=== PATIENT | male | born 1995 | race Caucasian/White ===

== ENCOUNTER 2024-11-14 23:23 | Emergency (ER) | payer OTHER, SELFPAY ==
[2024-11-14 23:26] VITALS: BP 120/80
--- NOTE | 2024-11-14 23:53 | ED.GENMED ---
History of Present Illness
General
Chief Complaint: Fall
Source: patient and family (Girlfriend at bedside)
Exam Limitations: none
Time Seen by Provider: 11/14/24 23:40
Nursing documentation reviewed up to this point in time: agreed with
History of Present Illness
History of Present Illness:
This is a 29-year-old gentleman who has remote history of substance use disorder, was at a bar tonight, admits to drinking alcohol and while attempting to balance himself between 2 barstool's he lost his balance, fell and struck his left superior
orbit and left upper lip on a chair versus table. He denies loss of consciousness. He complains of pain, laceration to his left brow, complains of pain and swelling left upper lip and also notes moderate generalized headache. He admits to brief
intermittent nausea but has had no vomiting. He denies dental injury. He denies neck nor back pain. He denies dizziness nor lightheadedness. No chest nor abdominal pain.
Last Tdap 2 to 3 years ago.
He takes no medicines on a daily basis.
Past History
Past History
ED Past Medical History: Other (Left Achilles tendinitis 2011) and Other (Substance abuse)
ED Past Surgical History: None
Social History
Tobacco: Smoker
Alcohol: Occasional
Drug: Former user
Personal: Single
Living: with family ([facility])
Employment: Employed (Construction)
Family History
Family History: Other (Noncontributory)
Phy Exam
Physical Exam
Physical Exam:
TRAUMA EXAM:
VITAL SIGNS: Vital signs reviewed, cooperative
DISTRESS: No active disease
EYES: Pupils reactive and equal bilaterally, extraocular muscles intact. Anterior chambers clear. There is moderate soft tissue swelling left mid to lateral eyebrow with 2 cm laceration left lateral eyebrow. Laceration is superficial subcutaneous
in depth. Moderate tenderness to palpation left superior orbit.
NOSE: No deformity or epistaxis
FACE AND SCALP: There is moderate soft tissue swelling left upper lip with 5 mm laceration lateral aspect of the upper lip that crosses the vermilion border. Laceration is superficial dermal in depth. There is no dental tenderness nor evidence of
dental fracture. Tongue is midline without abrasion nor tenderness. Posterior pharynx is clear.
NECK: Supple nontender, full range of motion without difficulty nor pain.
BACK: Back nontender, pelvis stable to compression
RESPIRATORY: No distress, breath sounds normal, no tender chest wall
CARDIAC: No murmur, pulses equal and strong
ABDOMEN: Soft nontender bowel sounds normal
SKIN: Warm and dry, normal color. Good turgor.
EXTREMITIES: Nontender, full range of motion without difficulty nor pain.
NEUROLOGICAL: Alert, oriented, no motor deficits
PSYCH: Mildly anxious, cooperative.
Course
Orders/Labs/Results
Orders:
Orders
11/15/24 00:01
CT Head W/o Iv Contrast Urgent
Reason For Exam: left sup orbital contusion/facial contusion-H/A
11/15/24 00:53
Sodium Bicarbonate 50 meq .ROUTE .STK-MED ONE
11/15/24 01:20
Cephalexin Monohydrate [Keflex] 500 mg PO NOW STA
Ibuprofen [Motrin] 600 mg PO NOW STA
Vital Signs
Initial and Last Documented VS:
Initial Vital Signs
Temp Pulse Resp BP Pulse Ox
98.2 F 96 18 120/80 96
11/14/24 23:26 11/14/24 23:26 11/14/24 23:26 11/14/24 23:26 11/14/24 23:26
Last Documented Vital Signs
Temp Pulse Resp BP Pulse Ox
98.2 F 90 18 117/82 99
11/14/24 23:26 11/15/24 01:35 11/15/24 01:35 11/15/24 01:35 11/15/24 01:35
Procedures
Laceration Closure
eyebrow-left lateral:
Status of Wound: clean
Size of Wound in cm: 2
Description of Wound Edges: sharp
Preparation: cleaned with saline and cleaned with Betadine
Anesthesia: 1% Lidocaine with epi and added Na Bicarb to local
Revision/Debridement: routine- no revision and irrigate-direct pressure
Wound exploration: explored to base- no FB and no tendon involvement
Type of Closure: single layer closure
Skin Closure Material: 5-0 nylon
Number of sutures: 3
Left Upper Lateral Lip:
Status of Wound: clean
Size of Wound in cm: 0.5
Description of Wound Edges: sharp
Preparation: cleaned with saline and cleaned with Betadine
Anesthesia: 1% Lidocaine with epi and added Na Bicarb to local
Revision/Debridement: routine- no revision and irrigate-direct pressure
Wound exploration: explored to base- no FB and no tendon involvement
Type of Closure: single layer closure
Skin Closure Material: 5-0 prolene
Number of sutures: 3
MDM/Problems Addressed
Differential Diagnosis Includes:
Patient presents with left brow contusion, left upper lip contusion with local lacerations. Moderate headache and due to concern for at least mild intoxication will check CT of the head.
Up-to-date with Tdap.
Will plan for suture repair.
*Radiology
Radiology exam reviewed: radiology read reviewed
*Pulse Oximetry
Patient hypoxic: no
*Critical Care Note
Total Time (30-74mins, 75-104mins- exclusive of procedures): Not Applicable
ED Attending Note
-
Portions of this chart may have been created with voice recognition software.� Occasional wrong word or��sound alike� substitutions may have occurred due to the inherent limitations of voice recognition software.
Discharge Plan
Departure
Patient Disposition: Home (Routine Discharge)
Patient with high blood pressure during this ER visit?: No
Discharge Problem:
Laceration of eyebrow, left, left upper lip laceration, Contusion of left eyebrow, left upper lip contusion
Instructions: Head Injury in Adults (DC), Contusion (DC), Laceration Repair With Stitches (DC)
Prescriptions:
New
cephalexin 500 mg capsule
1,000 mg PO BID 5 Days Qty: 20 0RF
ibuprofen 600 mg tablet
600 mg PO Q6H PRN (Reason: fever or pain) Qty: 30 0RF
Referrals:
MIGUEL EDGAR, DO [Family Provider] - Follow up in 5-7 days
Interventions
Interventions:
*Risk Screen - Suicide Last Done: 11/14/24 23:26
*General Assessment Last Done: 11/14/24 23:26
*Neglect/Abuse Screening Last Done: 11/14/24 23:26
*ED- Fall Risk Assessment Last Done: 11/14/24 23:26
*ED COVID-19 Vaccine History Last Done: 11/14/24 23:26
*Nursing Disposition Last Done: 11/15/24 01:35
ED-Musculoskeletal Assessment Last Done: 11/14/24 23:57
ED- Neurological Assessment Last Done: 11/14/24 23:56
ED-Skin Assessment Last Done: 11/14/24 23:59
Discharge Date and Time
Discharge Date/Time: 11/15/24 01:37
Print Language: POLISH
[2024-11-15 00:11] VITALS: BMI 22.9
[2024-11-15] MEDS: MOTRIN 600 MG PO (01:24)
[2024-11-15] MEDS: KEFLEX 500 MG PO (01:25)
[2024-11-15 01:33] VITALS: BP 117/82
[2024-11-15 01:35] VITALS: BP 117/82
== END 2024-11-15 01:37 | disposition home or self-care (01) ==
LOC: EMR 23:23
PROVIDERS: EMERGENCY PHYSICIAN Emergency Medicine; FAMILY PHYSICIAN Family Medicine Sports Medicine
DX: S01.112A Laceration without foreign body of left eyelid and periocular area, initial encounter (principal); S01.511A Laceration without foreign body of lip, initial encounter; W19.XXXA Unspecified fall, initial encounter; Y92.59 Other trade areas as the place of occurrence of the external cause; F17.200 Nicotine dependence, unspecified, uncomplicated
CPT/HCPCS: 12011; 99284; 70450